=== PATIENT | female | born 2005 | race Caucasian/White ===

== ENCOUNTER 2023-05-09 11:25 | Emergency (ER) | payer MEDICAID, OTHER ==
[~2023-05-09] VITALS: Ht 162.6 cm; Wt 68.0 kg
[2023-05-09 11:31] VITALS: O2SAT 99
[2023-05-09 12:00] VITALS: BP 130/80
[2023-05-09] MEDS ORDERED: CYCLOBENZAPRINE 10MG TABLET PO ONE (12:00)
[2023-05-09] MEDS ORDERED: KETOROLAC 30MG/ML VIAL IM ONE (12:00)
[2023-05-09] MEDS ORDERED: NAPR-1176 MT (13:17)
[2023-05-09] MEDS ORDERED: LIDO700A15 TP (13:17)
[2023-05-09 13:40] VITALS: PULSE 90; RESP 16; TEMP 97.8
== END 2023-05-09 13:41 | disposition home or self-care (01) ==
LOC: ER 11:25
DX: M54.9 Dorsalgia, unspecified (principal); R07.89 Other chest pain; V49.9XXA Car occupant (driver) (passenger) injured in unspecified traffic accident, initial encounter; Y93.89 Activity, other specified; Y92.89 Other specified places as the place of occurrence of the external cause; Y99.8 Other external cause status
CPT/HCPCS: 99283; 71045; 96372; J1885

== ENCOUNTER 2025-02-11 16:13 | Emergency (ER) | payer OTHER ==
[~2025-02-11] VITALS: Ht 165.1 cm; Wt 95.0 kg
[~2025-02-11 16:13] MED LIST: LIDO-53 TP; NAPR-1176 MT
[2025-02-11 16:25] VITALS: O2SAT 98
[2025-02-11 17:02] LABS: BASOPHILS % 0.5 % (0.0-2.0); EOSINOPHILS % 0.8 % (0.0-5.0); HEMATOCRIT. 35.6 % (36.0-48.0); HEMOGLOBIN. 11.8 g/dL (12.0-16.0); LYMPHOCYTES % 22.0 % (20.0-50.0); MEAN PLATELET VOLUME 9.9 fl (7.4-10.4); MONOCYTES % 4.3 % (2.0-8.0); NEUTROPHILS % 72.4 % (40.0-76.0); PLATELET 250 x1000/uL (130-400); RED BLOOD CELL COUNT 3.91 mill/uL (4.2-5.4); RED CELL DISTRIBUTION WIDTH 16.1 % (11.6-14.6)
[2025-02-11 17:14] LABS: CREATININE 0.5 mg/dL (0.6-1.0); UREA NITROGEN BLOOD < 5 mg/dL (9-23)
[2025-02-11 17:16] LABS: INR 0.9
[2025-02-11 17:33] LABS: B-HCG QUANTITATIVE 14679 mIU/mL (<6)
[2025-02-11 17:40] VITALS: TEMP 37.1
[2025-02-11 19:44] VITALS: BP 95/51; PULSE 85; RESP 17; O2SAT 100
== END 2025-02-11 19:46 | disposition home or self-care (01) ==
LOC: ER 16:13
DX: O26.892 Other specified pregnancy related conditions, second trimester (principal); R10.9 Unspecified abdominal pain; R10.20 Pelvic and perineal pain unspecified side; Z36.89 Encounter for other specified antenatal screening; Z79.1 Long term (current) use of non-steroidal anti-inflammatories (NSAID); Z3A.18 18 weeks gestation of pregnancy
CPT/HCPCS: 36415; 76805; 80048; 84702; 85025; 86850; 86900; 99284